=== PATIENT | male | born 1995 | race Caucasian/White ===

== ENCOUNTER 2018-03-25 18:59 | Emergency (ER) | payer BC ==
[~2018-03-25] VITALS: Ht 170.2 cm; Wt 61.2 kg
[~2018-03-25 18:59] MED LIST: ADDERALL XR 1010 MG PO; PREDNISONE50 MG PO
[2018-03-25] MEDS ORDERED: AUGMENTIN 875-1 EACH PO (19:52)
[2018-03-25 20:11] VITALS: BP 124/81
== END 2018-03-25 20:12 | disposition home or self-care (01) ==
LOC: M.ERS 18:59
DX: S41.151A Open bite of right upper arm, initial encounter (principal); W54.0XXA Bitten by dog, initial encounter; Y93.89 Activity, other specified; Y92.89 Other specified places as the place of occurrence of the external cause; Y99.8 Other external cause status

== ENCOUNTER 2021-01-04 11:40 | Emergency (ER) | payer BC ==
[~2021-01-04] VITALS: Ht 170.2 cm; Wt 66.2 kg
[~2021-01-04 11:40] MED LIST changes: +AUGMENTIN 875-1 EACH PO
[2021-01-04 16:25] VITALS: BP 119/70
== END 2021-01-04 16:26 | disposition home or self-care (01) ==
LOC: M.ERS 11:40
DX: S40.852A Superficial foreign body of left upper arm, initial encounter (principal); W45.8XXA Other foreign body or object entering through skin, initial encounter; Y93.89 Activity, other specified; Y92.89 Other specified places as the place of occurrence of the external cause; Y99.8 Other external cause status